=== PATIENT | female | born 1950 | race Caucasian/White ===

== ENCOUNTER 2023-11-26 19:37 | Emergency (ER) | payer MEDICARE, OTHER, SELFPAY ==
[2023-11-26 19:48] VITALS: BP 162/100
--- NOTE | 2023-11-26 19:49 | ED.PDOC.TRB ---
ED Provider Triage
-
Patient seen by provider in Triage?: Seen in Triage
Attestation: A medical screening examination has been initiated by a qualified medical provider. Based on the assessment performed at this time, it has been determined that an emergent medical condition may exist and the patient has been informed
that further medical evaluation and possible additional diagnostic testing may be needed.
HPI: 73yoF here after a fall <1 hour ago. Fell on her R arm. +Head strike, no LOC. Main complaint is R elbow and wrist pain but she does c/o R facial pain. No blood thinners.
GENERAL: Alert , in no apparent distress
EYE: No visual abnormalities.
NECK: Trachea midline. No cervical spine tenderness.
ENT: No visible abnormalities.
LUNGS: No acute respiratory distress
NEUROLOGICAL: Alert and oriented
SKIN: Skin intact. No visible changes.
MUSCULOSKELETAL: Hold R arm in flexion. Unable to attempt ROM of elbow 2/2 pain. 2+ radial pulse.
PSYCH: Normal and appropriate interaction.
This is a medical evaluation conducted in person to initiate diagnostic evaluation and provide initial therapeutics. Please see further documentation by the treating clinician.
CT head/facial bones and R elbow/forearm/wrist/hand x-rays ordered. Tylenol ordered for pain.
[2023-11-26] MEDS: TYLENOL 1000 MG PO (19:59)
[2023-11-26 22:19] VITALS: BP 138/86
--- NOTE | 2023-11-26 22:47 | ED.GENMED ---
Addendum entered and electronically signed by Bakari Man Jr., PA-C 12/07/23 15:11:
The patient had a posterior long-arm splint placed due to the proximal radius fracture. This was performed with fiberglass and Webril and then wrapped with an Jesús wrap. A sling was then placed. Total 15 minutes.
Original Note:
History of Present Illness
General
Chief Complaint: Fall
Source: patient
Exam Limitations: none
Time Seen by Provider: 11/26/23 22:13
Nursing documentation reviewed up to this point in time: agreed with
History of Present Illness
History of Present Illness:
73-year-old female presenting to the emergency department today with with concerns of right-sided elbow discomfort after mechanical fall mainly hitting her right elbow also hit her head. Did not lose consciousness not on blood thinners no neck pain
no numbness or weakness. No additional injuries to the lower extremities or left upper extremity.
Review of Systems
Review of Systems
Allergies reviewed?: Yes
All Other Systems: ROS reviewed and negative except as documented in HPI and ROS
Phy Exam
Physical Exam
Physical Exam:
GENERAL: Alert , in no apparent distress
EYE: pupils equal and reactive
NECK: Supple, no significant adenopathy.
ENT: o/p clr, mmm.
CARDIAC: Regular rate and rhythm .
LUNGS: Clear breath sounds bilaterally, no acute respiratory distress, no wheezes/rales/rhonchi
ABDOMEN: Soft, without focal tenderness, no r/g, no cvat
NEUROLOGICAL: Alert and oriented, no focal neuro deficits
SKIN: Warm and dry, skin intact.
MUSCULOSKELETAL: Swelling discomfort to the proximal right forearm in the lateral aspect. Increased discomfort with bending of the elbow. 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 No tenderness
to the clavicle or scapula. No tenderness to the legs.,well perfused.
PSYCH: Normal and appropriate interaction.
Course
Orders/Labs/Results
Orders:
Orders
11/26/23 19:52
Acetaminophen [Tylenol] 1,000 mg PO NOW STA
CR Elbow - Right Min 3 Views Urgent
Comment:
Reason For Exam: Injury
CR Forearm - Right 2 View Urgent
Comment:
Reason For Exam: Injury
CR Hand - Right Min 3 Views Urgent
Comment:
Reason For Exam: Injury
CR Wrist - Right Min 3 Views Urgent
Comment:
Reason For Exam: Injury
11/26/23 19:56
CT Facial Bones W/o Iv Contras Urgent
Comment:
Reason For Exam: R periorbital pain s/p fall
CT Head W/o Iv Contrast Urgent
Comment:
Reason For Exam: Head injury
Vital Signs
Initial and Last Documented VS:
Initial Vital Signs
Temp Pulse Resp BP Pulse Ox
98.8 F 102 20 162/100 97
11/26/23 19:48 11/26/23 19:48 11/26/23 19:48 11/26/23 19:48 11/26/23 19:48
Last Documented Vital Signs
Temp Pulse Resp BP Pulse Ox
98.8 F 93 18 138/86 96
11/26/23 19:48 11/26/23 22:19 11/26/23 22:19 11/26/23 22:19 11/26/23 22:19
MDM/Problems Addressed
MDM/Problems Addressed:
73-year-old female presenting to the emergency department today with concerns of right-sided proximal forearm discomfort after a fall where she hit her arm directly. Also did face. Did not lose consciousness no neck pain no numbness or weakness.
CT scan of the head and face without emergent findings. Patient does have tenderness to the proximal right sided forearm and the lateral aspect. Neurovascular intact. X-ray performed that did show radial head proximal fracture. Patient was
placed in a splint otherwise no emergent findings. Patient stable for outpatient follow-up return precautions given.
*Critical Care Note
Total Time (30-74mins, 75-104mins- exclusive of procedures): Not Applicable
ED Attending Note
-
Portions of this chart may have been created with voice recognition software.� Occasional wrong word or��sound alike� substitutions may have occurred due to the inherent limitations of voice recognition software.
Discharge Plan
Departure
Patient Disposition: Home (Routine Discharge)
Date of Disposition: 11/26/23
Time of Disposition: 22:47
Patient with high blood pressure during this ER visit?: No
Condition: Good
Covid-19: Not Applicable
Discharge Problem:
Fracture of proximal end of right radius
Instructions: Elbow Fracture, Adult ED
Referrals:
Delano Isidro MD [Family Provider] -
Naeem Peralta MD [Active] - Follow up in 5-7 days
Activity Restrictions/Additional Instructions:
You came to the emergency department today with concerns of right sided elbow discomfort. You are found to have a proximal radial head fracture. Please leave the splint until follow-up with orthopedics. Additionally you had a CT scan of your face
and head without emergent findings. Return to the emergency department for any worsening, new or concerning symptoms.
Interventions
Interventions:
*Risk Screen - Suicide Last Done: 11/26/23 19:38
*General Assessment Last Done: 11/26/23 19:48
*Neglect/Abuse Screening Last Done: 11/26/23 19:48
ED-Musculoskeletal Assessment Last Done: 11/26/23 21:23
ED- Neurological Assessment Last Done: 11/26/23 21:23
ED-Skin Assessment Last Done: 11/26/23 21:25
Discharge Date and Time
Print Language: LITHUANIAN
== END 2023-11-26 22:59 | disposition home or self-care (01) ==
LOC: EMR 19:37
PROVIDERS: EMERGENCY PHYSICIAN Emergency Medicine; FAMILY PHYSICIAN Internal Medicine
DX: S52.121A Displaced fracture of head of right radius, initial encounter for closed fracture (principal); W19.XXXA Unspecified fall, initial encounter
CPT/HCPCS: 99284; 29105; 70450; 70486; 73080; 73090; 73110; 73130

== ENCOUNTER 2024-09-10 09:31 | Emergency (ER) | payer MEDICARE, OTHER, SELFPAY ==
[2024-09-10 09:37] VITALS: BP 156/96
[2024-09-10 10:05] VITALS: BMI 26.0
--- NOTE | 2024-09-10 10:09 | ED.GENMED ---
History of Present Illness
General
Chief Complaint: Musculo-Skeletal Complaint
Time Seen by Provider: 09/10/24 09:40
History of Present Illness
History of Present Illness:
74-year-old female presents to the emergency department for evaluation of right ankle injury after tripping down her basement stairs. Not able to bear weight on the right ankle. Denies any knee or hip pain. Not on blood thinners
Review of Systems
Review of Systems
Allergies reviewed?: Yes
All Other Systems: ROS reviewed and negative except as documented in HPI and ROS
Phy Exam
Physical Exam
Physical Exam:
GEN: Well appearing, NAD, WDWN
HEENT: Oral mucosa moist, no scleral icterus
Cardiac: Regular rate
Lung: No respiratory distress, no tachypnea
MSK: No significant deformity however moderate swelling noted to the right ankle with tenderness to the lateral malleolus. No pain to the proximal fibula or midfoot, no ecchymosis.
Skin: Good color, no pallor or jaundice, no rashes
Neuro: AO x3, moves all extremities freely
Psych: Calm, cooperative
Course
Orders/Labs/Results
Orders:
Orders
09/10/24 09:39
Ankle, Right 3 view CR [CR Ankle - Right Min 3 Views *] Urgent
Comment:
Reason For Exam: tripped down two steps and twisted ankle
09/10/24 09:57
Case Management Consult ONCE
Case Management Consult: Other
Comment: DME
Vital Signs
Initial and Last Documented VS:
Initial Vital Signs
Temp Pulse Resp BP Pulse Ox
99.0 F 95 18 156/96 96
09/10/24 09:37 09/10/24 09:37 09/10/24 09:37 09/10/24 09:37 09/10/24 09:37
Last Documented Vital Signs
Temp Pulse Resp BP Pulse Ox
98.6 F 92 18 129/77 100
09/10/24 10:59 09/10/24 10:59 09/10/24 10:59 09/10/24 10:59 09/10/24 10:59
Procedures
Splinting/Sling Placement
Right leg:
Procedure completed by: Wong Sue PA-C
Pre-splint extermity exam: neurovascular intact
Type of splint: sugar-tong
Splint material: fiberglass
MDM/Problems Addressed
MDM/Problems Addressed:
Posterior tibia avulsion fracture with oblique fracture of the distal fibula identified on x-rays independently interpreted by me. Placed in sugar-tong splints, case management evaluated the patient for wheelchair given that the patient will need
to be nonweightbearing until orthopedic follow-up
Patient will require lightweight wheelchair with back and seat cushions as she will be unable to self propel in a standard wheelchair. Walker/cane/crutches are inadequate due to need for nonweightbearing status on the right lower extremity
*Pulse Oximetry
SaO2: 96
Oxygen Mode of Delivery: Room air
Patient hypoxic: no
*Critical Care Note
Total Time (30-74mins, 75-104mins- exclusive of procedures): Not Applicable
ED Attending Note
-
Portions of this chart may have been created with voice recognition software.� Occasional wrong word or��sound alike� substitutions may have occurred due to the inherent limitations of voice recognition software.
Discharge Plan
Departure
Patient Disposition: Home (Routine Discharge)
Date of Disposition: 09/10/24
Time of Disposition: 10:11
Patient with high blood pressure during this ER visit?: Yes
Discharge Problem:
Ankle fracture, right
Instructions: Ankle Fracture (DC)
Referrals:
Naeem Peralta MD [Active, Orthopedics]
Activity Restrictions/Additional Instructions:
No weightbearing on the right leg/foot until orthopedic follow-up
Call orthopedics today
Keep right leg elevated to reduce swelling, you may take 400 mg of ibuprofen in addition to Tylenol for pain control
Interventions
Interventions:
*Risk Screen - Suicide Last Done: 09/10/24 09:37
*General Assessment Last Done: 09/10/24 10:06
*Neglect/Abuse Screening Last Done: 09/10/24 09:37
*ED- Fall Risk Assessment Last Done: 09/10/24 10:06
*ED COVID-19 Vaccine History Last Done: 09/10/24 10:06
*Nursing Disposition Last Done: 09/10/24 10:59
ED-Musculoskeletal Assessment Last Done: 09/10/24 10:06
Discharge Date and Time
Discharge Date/Time: 09/10/24 10:55
Print Language: MALIAN
--- NOTE | 2024-09-10 10:49 | CM ---
Reviewed the chart notes and spoke with the patient and her daughter at the bedside. The patient resides with her son and [id number] in a two story home with one step to enter. The patient reports no DME/VN/SNF. The patient confirmed her
pharmacy of choice is [facility]. CM consult for wheelchair received. Order form and clinical faxed to [facility]. CM continues to be available to patient/family and is monitoring medical plan for needs at discharge.
Plan: Discharge to home with daughter. Vera to reach out and delivery wheelchair.
--- NOTE | 2024-09-10 10:58 | EDRN ---
REviewed discharge instructions with patient. Verbalized understanding. Taken to lobby in wheelchair.
[2024-09-10 10:59] VITALS: BP 129/77
== END 2024-09-10 10:55 | disposition home or self-care (01) ==
LOC: EMR 09:31
PROVIDERS: EMERGENCY PHYSICIAN Emergency Medicine; FAMILY PHYSICIAN Internal Medicine
DX: S82.831A Other fracture of upper and lower end of right fibula, initial encounter for closed fracture (principal); X50.1XXA Overexertion from prolonged static or awkward postures, initial encounter
CPT/HCPCS: 99283; 29515; 73610

== ENCOUNTER 2024-09-22 06:06 | Day surgery (SDC) | payer MEDICARE, OTHER, SELFPAY ==
[2024-09-22] VITALS (11 sets, daily range): BP systolic 92–115; BP diastolic 49–83; BMI 25.7
[2024-09-22] MEDS: NORMOSOL-R/PLASMALYTE-A 1000 IV (08:38)
[2024-09-22] MEDS: TYLENOL 1000 MG PO (08:39)
[2024-09-22] MEDS: CELEBREX 200 MG PO (08:39)
[2024-09-22 08:44] LABS: Hematocrit 38.9 % (37.0-47.0); Hemoglobin 13.0 g/dL (12.0-16.0); Mean Corp Hgb Conc. 33.4 g/dL (33.0-37.0); Mean Corpuscular Volume 94.9 fL (81.0-99.0); Platelet Count 210 10^3/uL (130-400); Red Cell Dist. Width 12.4 % (11.5-14.5)
[2024-09-22 09:57] LABS: ALT (SGPT) 21 U/L (0-35); AST (SGOT) 23 U/L (14-36); Albumin 4.4 g/dl (3.5-5.0); Alkaline Phosphatase 61 U/L (38-126); Blood Urea Nitrogen 14 mg/dl (7-17); Calcium 9.3 mg/dl (8.4-10.2); Carbon Dioxide 29 mmol/L (22-30); Chloride 104 mmol/L (98-107); Estimated Creatinine Clearance 64 ml/min; Glucose 99 mg/dl (70-99); Potassium 4.0 mmol/L (3.5-5.1); Sodium 140 mmol/L (135-145); Total Protein 7.5 g/dl (6.3-8.2); eGFR > 60.00
[2024-09-22] MEDS: DILAUDID 0.5 MG IV (11:02)
[2024-09-22] MEDS: DILAUDID 0.25 MG IV (11:19)
== END 2024-09-22 13:25 | disposition home or self-care (01) ==
LOC: SDS 06:06
PROVIDERS: ATTENDING PHYSICIAN Student in an Organized Health Care Education/Training Program
DX: S82.851A Displaced trimalleolar fracture of right lower leg, initial encounter for closed fracture (principal); S93.431A Sprain of tibiofibular ligament of right ankle, initial encounter; W19.XXXA Unspecified fall, initial encounter
CPT/HCPCS: 27822; 27829; C1713; 73610; 76000; 80053; 85027; 97162